=== PATIENT | male | born 1995 ===

== ENCOUNTER 2019-07-05 16:22 | Emergency (ER) | payer SELFPAY ==
[2019-07-05] MEDS ORDERED: IBUPROFEN 800 MG TAB PO ONE (18:18)
--- NOTE | 2019-07-05 18:21 | Event Note ---
ED Screening Note ED Screening Note: changing tire on car and the caitlyn slipped. tire came down on hand obvious swelling to left hand This initial assessment/diagnostic orders/clinical plan/treatment(s) is/are subject to change based on patients health status, clinical progression and re- assessment by fellow clinical providers in the ED. Further treatment and workup at subsequent clinical providers discretion. Patient/guardian urged not to elope from the ED as their condition may be serious if not clinically assessed and managed. Initial orders include: XR Motrin
--- NOTE | 2019-07-05 18:57 | XRay Report ---
LEFT HAND 3 VIEWS INDICATION / CLINICAL INFORMATION: Left hand pain, tingling and swelling after crush injury. COMPARISON: None available. FINDINGS: BONES and JOINT(S): No acute fracture or subluxation. No significant arthritis. SOFT TISSUES: Mild edema is seen dorsally along the hand. ADDITIONAL FINDINGS: None. IMPRESSION: Mild left hand edema. Signer Name: Shabbir Faria MD Signed: 07/05/2019 6:53 PM Workstation Name: [id number]
[2019-07-05] MEDS ORDERED: HYDROcodone/ACETAMINOPHEN 5-325 MG TAB PO ONE (21:11)
--- NOTE | 2019-07-05 21:17 | Emergency Department Report ---
HPI - General Chief Complaint: Extremity Injury, Upper Time Seen by Provider: 07/05/19 21:04 - HPI HPI: Room 35 The pt is a 23 y/o M p/w a cc of left handf pain. The pt states he was changing a tire on a car when he let the caitlyn down and the tire came to rest on his left hand. Pt c/o pain to the ulnar side of the left hand. Pt states he last received his tetanus vaccs 2 years ago. Pt gives his hand pain a score of 6/10 ED Past Medical Hx - Past Medical History Previous Medical History?: No - Surgical History Past Surgical History?: No - Family History Family history: no significant - Social History Smoking Status: Never Smoker Substance Use Type: None - Medications Home Medications: Home Medications Medication Instructions Recorded Confirmed Last Taken Type HYDROcodone/APAP 5-325 [Cla[place]orne 1 each PO Q6HR PRN #10 tablet 07/05/19 Unknown Rx 5/325] Ibuprofen [Motrin 800 MG tab] 800 mg PO Q8HR PRN #20 tablet 07/05/19 Unknown Rx ED Review of Systems ROS: Stated complaint: LFT HAND TINGLE/PAIN Other details as noted in HPI Musculoskeletal: arthralgia, myalgia Physical Exam - Physical Exam Vital Signs: Vital Signs 07/05/19 18:17 Temperature 98.5 F Pulse Rate 70 Respiratory 18 Rate Blood Pressure 136/71 O2 Sat by Pulse 97 Oximetry Physical Exam: GEN: WD WN M sitting on stretcher in NAD HEENT: NCAT, EOMI NECK:Trachea midline, no stridor CV: rrr. 2+ left RP. normal cap refill digits of left hand Pulm: no resp distress Neuro: GCS 15 SKIN: abrasions to the back of the left hand MS: tenderness to the 5th ED Course Vital Signs 07/05/19 18:17 Temperature 98.5 F Pulse Rate 70 Respiratory 18 Rate Blood Pressure 136/71 O2 Sat by Pulse 97 Oximetry ED Medical Decision Making - Radiology Data Radiology results: report reviewed (left hand xr), image reviewed (left hand xr) interpreted by me: left hand xr- no acute fx [facility] [address] [place] [address] XRay Report Signed Patient: JAY SCHWARTZ MR#: [id number] : 1995 Acct:[id number] Age/Sex: 23 / M ADM Date: 07/05/19 Loc: ED Attending Dr: Ordering Physician: SIENA AMAYA MD Date of Service: 07/05/19 Procedure(s): XR hand 3+V LT Accession Number(s): [id number] cc: ISENA AMAYA MD Fluoro Time In Minutes: LEFT HAND 3 VIEWS INDICATION / CLINICAL INFORMATION: Left hand pain, tingling and swelling after crush injury. COMPARISON: None available. FINDINGS: BONES and JOINT(S): No acute fracture or subluxation. No significant arthritis. SOFT TISSUES: Mild edema is seen dorsally along the hand. ADDITIONAL FINDINGS: None. IMPRESSION: Mild left hand edema. Signer Name: Shabbir Faria MD Signed: 07/05/2019 6:53 PM Workstation Name: [id number] Transcribed By: FRANCISCO JAVIER Dictated By: Shabbir Faria MD Electronically Authenticated By: Shabbir Faria MD Signed Date/Time: 07/05/191852 DD/ 50 TD/TT: - Differential Diagnosis hand fracure, hand contusion Critical care attestation.: If time is entered above; I have spent that time in minutes in the direct care of this critically ill patient, excluding procedure time. ED Disposition Clinical Impression: Contusion of left hand Disposition: DC-01 TO HOME OR SELFCARE Is pt being admited?: No Does the pt Need Aspirin: No Condition: Stable Prescriptions: Ibuprofen [Motrin 800 MG tab] 800 mg PO Q8HR PRN #20 tablet PRN Reason: Pain, Moderate (4-6) HYDROcodone/APAP 5-325 [Cla[place]orne 5/325] 1 each PO Q6HR PRN #10 tablet PRN Reason: Pain Referrals: PRIMARY CARE, [Primary Care Provider] - 3-5 Days MIKE COHEN MD [Staff Physician] - 3-5 Days (Dr Cohen is an orthopedic surgeon. Please follow up with him for further evaluation) Time of Disposition: 21:25
[2019-07-05 21:38] VITALS: BP 124/62
== END 2019-07-05 21:39 | disposition home or self-care (01) ==
LOC: ED 16:22
DX: S60.222A Contusion of left hand, initial encounter (principal); X58.XXXA Exposure to other specified factors, initial encounter; Y93.89 Activity, other specified; Y92.89 Other specified places as the place of occurrence of the external cause; Y99.8 Other external cause status; Z79.1 Long term (current) use of non-steroidal anti-inflammatories (NSAID); Z79.899 Other long term (current) drug therapy